=== PATIENT | female | born 1995 | race Caucasian/White ===

== ENCOUNTER → 2018-12-23 | Outpatient (CLI) | payer OTHER ==
[2018-12-23 17:20] LABS: BASO % 0.4 % (0.0-1.0); EOS % 0.4 % (0.0-3.0); HEMATOCRIT 38.1 % (36.0-47.0); HEMOGLOBIN 12.8 g/dl (12.0-15.5); LYMPH # 2.1 10^3/uL (1.5-5.0); LYMPH % 24.4 % (24.0-44.0); MEAN CORPUSCULAR HEMOGLOBIN 32.2 pg (27.0-33.0); MEAN CORPUSCULAR HGB CONC 33.6 g/dl (32.0-36.5); MEAN CORPUSCULAR VOLUME 95.7 fl (80.0-96.0); MONO # 0.7 10^3/uL (0.0-0.8); NEUTROPHILS # 5.6 10^3/uL (1.5-8.5); NEUTROPHILS % 66.6 % (36.0-66.0); PLATELET COUNT, AUTOMATED 213 10^3/uL (150-450); RED BLOOD COUNT 3.98 10^6/uL (4.00-5.40); WHITE BLOOD COUNT 8.4 10^3/uL (4.0-10.0)
[2018-12-23 18:32] LABS: CHLAMYDIA DNA AMPLIFICATION NEGATIVE (NEGATIVE); GC DNA AMPLIFICATION NEGATIVE (NEGATIVE)
[2018-12-26 13:24] LABS: HIV 1&2 SCREEN CENTAUR NEGATIVE (NEGATIVE); RUBELLA IgG QUALITATIVE IMMUNE (IMMUNE)
== END ==
LOC: M SMT 15:00
PROVIDERS: ATTEND Advanced Practice Midwife
DX: Z34.81 Encounter for supervision of other normal pregnancy, first trimester (principal); Z3A.00 Weeks of gestation of pregnancy not specified

== ENCOUNTER → 2019-02-01 | Outpatient (CLI) | payer BC, OTHER ==
--- NOTE | 2019-02-01 19:17 | REP ---
OB ULTRASOUND: Real-time sonographic evaluation of the gravid uterus performed. There is a single living intrauterine gestation, estimated gestational age 18 weeks 4 days, EDC 07/01/2019. Today's measurements indicate appropriate growth. BPD 45 mm = 19 weeks 4 days, 77th percentile HC 158 mm = 18 weeks 5 days, 52nd percentile AC 130 mm = 18 weeks 4 days, 49th percentile FL 27 mm = 18 weeks 1 day, 39th percentile HC/AC ratio 1.21 within normal range. Estimated weight 240 grams, 41st percentile. Cervix is closed and measures 4.3 cm in length. heart rate 139 beats per minute. SEEN/GROSSLY UNREMARKABLE Lateral ventricles yes Posterior fossa yes Upper lip yes Four-chamber heart yes LVOT yes RVOT no Stomach yes Cord insertion yes Three vessel cord yes Kidneys yes Bladder yes Spine yes position: Vertex. Placenta: Posterior and grade 1 with no previa or abruption. Amniotic fluid: Within normal limits. Electronically Signed by Derek Pate MD 02/06/2019 10:10 A
== END ==
LOC: M RAD 16:59
PROVIDERS: ATTEND Advanced Practice Midwife
DX: Z34.92 Encounter for supervision of normal pregnancy, unspecified, second trimester (principal); Z3A.18 18 weeks gestation of pregnancy

== ENCOUNTER → 2019-02-24 | Outpatient (REF) | payer OTHER | LOC: M PLALAB 11:47 | PROVIDERS: ATTEND Advanced Practice Midwife | DX: Z34.02 Encounter for supervision of normal first pregnancy, second trimester (principal) ==

== ENCOUNTER → 2019-02-28 | Outpatient (CLI) | payer OTHER ==
--- NOTE | 2019-02-28 19:09 | REP ---
Clinical: Anatomical evaluation. Comparison: 02/01/2019. Findings: Examination demonstrates a single live intrauterine in transverse presentation. motion is identified by technologist. Placenta is noted posterior and grade 0 without evidence for placenta previa or abruption. Amniotic fluid volume is normal. Cervix measures 6.5 cm in length and appears closed. No evidence for nuchal cord. Gestational age by LMP 22 weeks 3 days with MELISSA 07/01/2019 . Gestational age by current measurements 23 weeks 1 day with MELISSA 06/26/2019. FHR equals 141 beats per minute. Estimated weight 521 grams ( 53rd percentile). Anatomical assessment demonstrates normal facial features and right cardiac ventricular outflow tract. Impression: Single live intrauterine in transverse lie demonstrating appropriate interval growth. 2. In conjunction with prior examination anatomical assessment is complete and normal. Electronically Signed by Umair Burnett MD 02/28/2019 07:00 P
== END ==
LOC: M RAD 17:31
PROVIDERS: ATTEND Advanced Practice Midwife
DX: Z34.02 Encounter for supervision of normal first pregnancy, second trimester (principal); Z3A.22 22 weeks gestation of pregnancy

== ENCOUNTER → 2019-03-31 | Outpatient (CLI) | payer OTHER ==
[2019-03-31 17:27] LABS: HEMATOCRIT 36.2 % (36.0-47.0); HEMOGLOBIN 12.3 g/dl (12.0-15.5); MEAN CORPUSCULAR HEMOGLOBIN 33.5 pg (27.0-33.0); MEAN CORPUSCULAR VOLUME 98.6 fl (80.0-96.0); PLATELET COUNT, AUTOMATED 219 10^3/uL (150-450); RED BLOOD COUNT 3.67 10^6/uL (4.00-5.40)
== END ==
LOC: M PLALAB 12:58
PROVIDERS: ATTEND Advanced Practice Midwife
DX: Z34.02 Encounter for supervision of normal first pregnancy, second trimester (principal)

== ENCOUNTER → 2019-06-09 | Outpatient (REF) | payer OTHER | LOC: M PLALAB 09:36 | PROVIDERS: ATTEND Advanced Practice Midwife | DX: Z3A.36 36 weeks gestation of pregnancy (principal) ==

== ENCOUNTER 2019-06-23 10:40 | Outpatient (CLI) | payer OTHER ==
[~2019-06-23] VITALS: Ht 157.5 cm; Wt 81.3 kg
[2019-06-23 10:54] VITALS: BP 150/94
[2019-06-23 10:58] VITALS: BP 138/77
--- NOTE | 2019-06-23 11:13 | IPNPDOC ---
Text Note Date of Service The patient was seen on 06/23/19. NOTE Outpatient 23yo G1 MELISSA 07/01/2019. Presents @ 38w6d with reports of UC since 0300. Denies LOF, bleeding. Reports good activity. NAD, resting in bed VSS FH 150, + accels, occasional variable decels UC 2-4 minutes apart, mild SVE 2/80/-2, soft. Exam 2 days ago 50/-2 Will ambulate and reassess VS,Fishbone, I+O VS, Fishbone, I+O Vital Signs Date Time Temp Pulse Resp B/P (MAP) Pulse Ox O2 Delivery O2 Flow Rate FiO2 06/23/19 10:53 98.8 18 Room Air Zhanna Moe CNM June 23, 2019 11:13
[2019-06-23 12:13] VITALS: BP 128/76
[2019-06-23 13:38] VITALS: BP 125/80
--- NOTE | 2019-06-23 13:50 | IPNPDOC ---
Text Note Date of Service The patient was seen on 06/23/19. NOTE Outpatient Has ambulated for 2 hours. Cat I tracing, with mild irregular UC No cervical changed Discharged home. Rec rest, hydrate, tylenol Pt instructed to call with increased UC, LOF, bleeding Keep appt next week if no labor VS,Fishbone, I+O VS, Fishbone, I+O Vital Signs Date Time Temp Pulse Resp B/P (MAP) Pulse Ox O2 Delivery O2 Flow Rate FiO2 06/23/19 13:38 102 18 125/80 (95) Room Air 06/23/19 13:38 98.5 Zhanna Moe CNM June 23, 2019 13:50
== END 2019-06-23 13:41 | disposition home or self-care (01) ==
LOC: M LDO 10:40
PROVIDERS: ATTEND Advanced Practice Midwife
DX: O26.893 Other specified pregnancy related conditions, third trimester (principal); O47.1 False labor at or after 37 completed weeks of gestation; Z3A.38 38 weeks gestation of pregnancy
CPT/HCPCS: 59025; G0378; G0463

== ENCOUNTER 2019-07-07 15:29 | Inpatient (IN) | payer OTHER ==
[2019-07-07] VITALS (20 sets, daily range): BP systolic 112–156; BP diastolic 52–90
[~2019-07-07] VITALS: Ht 157.5 cm; Wt 83.4 kg
[2019-07-07] MEDS ORDERED: MAPA500T2 PO (15:45)
[2019-07-07] MEDS ORDERED: LEXA1TAB PO (15:45)
[2019-07-07] MEDS ORDERED: PRENTAB9 PO (15:45)
[2019-07-07] MEDS ORDERED: LACTATED RINGER'S 1000 ML IV STA (16:00)
--- NOTE | 2019-07-07 16:28 | HPEPDOC ---
Obstetrical History & Physical General Date of Admission July 07, 2019 at 15:29 History of Present Illness Chief Complaint: Contractions, term Information Provided By: Patient Age: 23 : 1 Term: 0 Pre-term: 0 Abortions: 0 Livin Care Care: Good Care Dating Final EDC by: LMP EGA at Admission: 40 (+6) Antepartum Course Height (inches): 63 Pre- weight (lbs.): 144 Admission Weight (lbs.): 183.6 Past Medical History Past Obstetrical History : Past Obstetrical History: [employer] History: No pertinent history Past Medical History Surgical History: Tonsilectomy Family History Significant Family History: Cancer (mother stage 2 breast CA), Diabetes, Heart disease, Hypertension Social History Marital Status: Single Family situation: Spouse/partner home Psychosocial History: Depression (stopped then restarted lexapro with ) * Smoker: non-smoker Alcohol: Denies Drugs: denies Abuse Violence Screening Have you been hit/kicked/slapp: No Have you been sexually assault: No Imunizations Tdap status: current Influenza Status: current Allergies Coded Allergies: cefaclor (Verified Allergy, Unknown, 07/07/19) Medications Scheduled Escitalopram Oxalate (Lexapro) 10 Mg Tablet, 10 MG PO DAILY No.137/Iron/Folic Acd ( Vitamin Tablet) 1 Each Tablet, 1 TAB PO DAILY Scheduled PRN Acetaminophen (Mapap) 500 Mg Tablet, 500 MG PO Q6HP PRN for PAIN Physical Examination Physical Examination GENERAL: Alert and oriented times three. BREAST: . ABDOMEN: Gravid and non-tender to touch. FETUS: Is vertex (VTX) by sterile vaginal examination (SVE), fetus is vertex (VTX) by Harry. HEART RATE: Regular rate and rhythm. LUNGS: Clear to auscultation (CTA). EXTREMITIES: No edema. No clonus. Deep tendon reflexes (DTRs) + 2. Vital Signs/I&O Vital Signs Date Time Temp Pulse Resp B/P (MAP) Pulse Ox O2 Delivery O2 Flow Rate FiO2 07/07/19 15:47 98.3 98 18 124/81 (95) Laboratory Data 24H [facility] Laboratory Tests 2 07/07/19 15:39: Serology Scanned Report Hepatitis B Testing Urine Culture: No Growth Pertinent Laboratoy Data Blood Type: O+ RBC Antibody Screen: Negative HIV: Negative Hepatitis B: Negative Hepatitis C: Negative Rapid Plasma Reagin: Nonreactive Rubella: Immune Chlamydia/Gonorrhea: Negative Group B Streptococcus: Negative Quad Screen Test: Declined Glucose Tolerance Test: 110 Anatomy Ultrasound Placenta Location: Posterior Normal Anatomy: Yes Placenta Previa: No Estimated Weight (grams): 240 (41%) Other Ultrasounds 12/01/2018 dating 9w2d F/u anatomy WNL EFW 521g, 53% Steroid Therapy Steroid Therapy: No Vaginal Examination Dilation: 3 cm Effacement: 90% Station: -2 Cervical Consistency: Medium Cervical Position: Middle Presentation: Cephalic presentation Assessment Heart Rate (FHR): 135 Variability: Moderate Accelerations: Positive Decelerations: None Tocometer Contractions: Yes Frequency: regular, every 3-7 min. Duration: greater than 60 seconds Strength: palpated as moderate Assessment/Plan Assessment Anusha is a 23-year-old (G)1 para (P)0-0-0-0 at 40+6 weeks by 9-week ultrasound. Presents to Labor and Delivery (L&D) with reports of contractions and bloody show since 0600. Stronger since noon. NST in office showed Cat I tracing, UC 4-5 minutes x 90-120 seconds, moderate. SVE in office /-, change from exam earlier this week. Plan Admit and orient. 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 Diet: regular. Group B Streptococcus (GBS) negative. Labs and intravenous (IV) per unit protocol. Counseled on Pitocin and induction of labor (IOL). Lactated Ringers (LR): Bolus 500 mL, then saline lock. Plans to labor ad petra. Is considering IV pain management vs epidural Anticipate normal spontaneous delivery (). C-S as appropriate. Zhanna Moe CNM July 07, 2019 16:14
[2019-07-07 16:43] LABS: HEMOGLOBIN 12.8 g/dl (12.0-15.5); MEAN CORPUSCULAR HEMOGLOBIN 32.1 pg (27.0-33.0); MEAN CORPUSCULAR HGB CONC 34.6 g/dl (32.0-36.5); MEAN CORPUSCULAR VOLUME 92.7 fl (80.0-96.0); PLATELET COUNT, AUTOMATED 204 10^3/uL (150-450); RED BLOOD COUNT 3.99 10^6/uL (4.00-5.40); WHITE BLOOD COUNT 13.9 10^3/uL (4.0-10.0)
[2019-07-07] MEDS ORDERED: PROMETHAZINE INJ 25 MG/ML VIAL (J2550) IV ONE (17:45)
[2019-07-07] MEDS ORDERED: BUTORPHANOL 2 MG/ML INJ (J0595) IV ONE (17:45)
--- NOTE | 2019-07-07 19:11 | IPNPDOC ---
Text Note Date of Service The patient was seen on 07/07/19. NOTE Progress Has received stadol and phenergan. UC have subsequently spaced out approximately 6 minutes apart FH 135, minimal variabiltiy due to stadol, previously Cat I SVE /-2, light show Will start pitocin augmentation. Pt is considering epidural VS,Fishbone, I+O VS, Fishbone, I+O Laboratory Tests 07/07/19 16:25 Vital Signs Date Time Temp Pulse Resp B/P (MAP) Pulse Ox O2 Delivery O2 Flow Rate FiO2 07/07/19 18:15 97.6 07/07/19 18:08 18 07/07/19 18:03 93 123/70 (87) Zhanna Moe CNM July 07, 2019 19:11
[2019-07-07] MEDS ORDERED: OXYTOCIN DRIP 30 UNITS in IV 1 EA IV SCH (19:15)
[2019-07-07] MEDS ORDERED: FENTANYL 2MCG/ML ROPIVACAINE 0.2% IN 0.9% NACL 100ML IVBAG As Ordered ONE (21:30)
[2019-07-07] MEDS ORDERED: LACTATED RINGER'S 1000 ML IV PRN (22:13)
[2019-07-07] MEDS ORDERED: NALOXONE INJ 0.4MG/1ML VIAL (J2310 PER 1MG) IV PRN (22:13)
[2019-07-07] MEDS ORDERED: ePHEDrine SULFATE 25 MG/5 ML(5MG/ML) SYRINGE IV PRN (22:13)
[2019-07-07] MEDS ORDERED: diphenhydrAMINE 50MG/ML VIAL (J1200) IV PRN (22:13)
[2019-07-07] MEDS ORDERED: REFRIGERATOR IV KEYS XX PRN (22:13)
[2019-07-07] MEDS ORDERED: EPIDURAL/PCA KEYS XX PRN (22:13)
[2019-07-07] MEDS ORDERED: ONDANSETRON 4MG/2ML VIAL IV PRN (22:13)
[2019-07-07] MEDS ORDERED: EPIDURAL COMMENT XX SCH (22:13)
[2019-07-07] MEDS: FENTANYL/ROPIVACAINE/NACL BAG 100 ML EPIDURAL SCH (22:13)
--- NOTE | 2019-07-07 22:54 | IPNPDOC ---
Text Note Date of Service The patient was seen on 07/07/19. NOTE Progress Comfortable with epidural Pitocin @ 2mu UC 2-3 minutes apart x 60 seconds FH 135, Cat I SVE /-1, anterior Enc rest. Anticipate NSVB VS,Fishbone, I+O VS, Fishbone, I+O Laboratory Tests 07/07/19 16:25 Vital Signs Date Time Temp Pulse Resp B/P (MAP) Pulse Ox O2 Delivery O2 Flow Rate FiO2 07/07/19 19:37 98.4 91 18 129/78 (95) Zhanna Moe CNM July 07, 2019 22:54
[2019-07-07] MEDS: LR 1,000 ML IV SCH (23:40)
[2019-07-08] VITALS (31 sets, daily range): BP systolic 118–158; BP diastolic 67–101
[2019-07-08] MEDS: FENTANYL/ROPIVACAINE/NACL BAG 100 ML EPIDURAL SCH (05:15)
--- NOTE | 2019-07-08 05:22 | IPNPDOC ---
Text Note Date of Service The patient was seen on 07/08/19. NOTE Feeling pressure/pain rectally SROM scant clear fluid 0249 Pitocin remains @ 2 mu UC Q 2-3 minutes x 60 seconds FH 145, Cat I SVE 8-9/100/-1-0. Forebag palpable. Offered AROM, pt declines at this time. VS,Fishbone, I+O VS, Fishbone, I+O Laboratory Tests 07/07/19 16:25 Vital Signs Date Time Temp Pulse Resp B/P (MAP) Pulse Ox O2 Delivery O2 Flow Rate FiO2 07/08/19 00:57 94 132/75 (94) 07/07/19 23:59 99.1 16 I&O- Last 24 Hours up to 6 AM 07/08/19 06:00 Intake Total 500 ml Output Total 350 ml Balance 150 ml Zhanna Moe CNM July 08, 2019 05:22
--- NOTE | 2019-07-08 07:08 | IPNPDOC ---
Text Note Date of Service The patient was seen on 07/08/19. NOTE Pt requesting AROM of forebag. 9cm, mostly on left side, 0 station AROM, scant clear fluid Cat I tracing. VS,Fishbone, I+O VS, Fishbone, I+O Laboratory Tests 07/07/19 16:25 Vital Signs Date Time Temp Pulse Resp B/P (MAP) Pulse Ox O2 Delivery O2 Flow Rate FiO2 07/08/19 06:58 121 128/88 (101) 07/08/19 03:39 99.8 16 I&O- Last 24 Hours up to 6 AM 07/08/19 06:00 Intake Total 500 ml Output Total 350 ml Balance 150 ml Zhanna Moe CNM July 08, 2019 07:08
[2019-07-08] MEDS: LR 1,000 ML IV SCH (07:13)
[2019-07-08] MEDS ORDERED: DIBUCAINE 1% OINTMENT 30GM TOP PRN (10:30)
[2019-07-08] MEDS ORDERED: RHOGAM 300 MCG (1500 IU) INJ (J2790) IM SCH (10:30)
[2019-07-08] MEDS ORDERED: LIDOCAINE 1% MDV 20ML VIAL INFIL ONE (10:30)
[2019-07-08] MEDS ORDERED: METHYLERGONOVINE MALEATE 0.2 MG TAB PO PRN (10:30)
[2019-07-08] MEDS ORDERED: DOCUSATE SODIUM 100 MG CAP PO PRN (10:30)
[2019-07-08] MEDS ORDERED: MEASLES,MUMPS,RUBELLA VACCINE INJ (MMR-II) (90707) SC SCH (10:30)
[2019-07-08] MEDS ORDERED: miSOPROStol 100 MCG TAB (S0191) PR ONE (10:30)
[2019-07-08] MEDS ORDERED: IBUPROFEN 600 MG TAB PO PRN (10:30)
[2019-07-08] MEDS ORDERED: PROMETHAZINE 25 MG TAB PO PRN (10:30)
[2019-07-08] MEDS ORDERED: OXYTOCIN 30 UNITS IN 0.9% NaCl 500ML IV BAG (J2590) As Ordered ONE (10:31)
[2019-07-08] MEDS ORDERED: OXYTOCIN DRIP 30 UNITS in IV 1 EA IV SCH ×2 (11:00→11:30)
[2019-07-08] MEDS ORDERED: LR 1,000 ML IV SCH (11:00)
[2019-07-08] MEDS ORDERED: miSOPROStol 200 MCG TAB (S0191) As Ordered ONE (11:15)
[2019-07-08] MEDS: IBUPROFEN 800 MG TAB PO PRN ×2 (11:16→20:25)
[2019-07-08] MEDS: ACETAMINOPHEN 500 MG TAB PO PRN ×3 (11:42→23:44)
[2019-07-08] MEDS ORDERED: miSOPROStol 200 MCG TAB (S0191) PR ONE (12:00)
[2019-07-09] MEDS: IBUPROFEN 800 MG TAB PO PRN ×3 (04:37→19:20)
[2019-07-09 06:00] VITALS: BP 122/76
[2019-07-09 07:08] LABS: HEMATOCRIT 28.9 % (36.0-47.0); MEAN CORPUSCULAR HEMOGLOBIN 33.1 pg (27.0-33.0); MEAN CORPUSCULAR HGB CONC 34.9 g/dl (32.0-36.5); MEAN CORPUSCULAR VOLUME 94.8 fl (80.0-96.0); PLATELET COUNT, AUTOMATED 155 10^3/uL (150-450); RED BLOOD COUNT 3.05 10^6/uL (4.00-5.40); WHITE BLOOD COUNT 18.5 10^3/uL (4.0-10.0)
[2019-07-09 07:11] LABS: HEMOGLOBIN 10.1 g/dl (12.0-15.5)
[2019-07-09] MEDS: ACETAMINOPHEN TAB 650MG DOSE (2X325MG) PO PRN ×2 (08:14→16:48)
[2019-07-09] MEDS: PRENATAL VITAMINS CHEWABLE TABLET PO SCH (08:15)
[2019-07-09 18:07] VITALS: BP 125/70
[2019-07-10] MEDS: ACETAMINOPHEN 500 MG TAB PO PRN ×2 (01:22→07:41)
[2019-07-10] MEDS: IBUPROFEN 800 MG TAB PO PRN (03:33)
[2019-07-10 06:20] VITALS: BP 122/78
[2019-07-10] MEDS: PRENATAL VITAMINS CHEWABLE TABLET PO SCH (07:40)
== END 2019-07-10 12:40 | disposition home or self-care (01) | DRG 807 ==
LOC: M LDI 15:29 → M OBS 07-08 13:23
PROVIDERS: ADMIT Advanced Practice Midwife; ATTEND Advanced Practice Midwife
PROC: 10E0XZZ Delivery of Products of Conception, External Approach (ICD-10-PCS; principal; 2019-07-08)
PROC: 0HQ9XZZ Repair Perineum Skin, External Approach (ICD-10-PCS; 2019-07-08)
DX: O48.0 Post-term pregnancy (principal); Z37.0 Single live birth; Z3A.40 40 weeks gestation of pregnancy

== ENCOUNTER → 2021-03-17 | Outpatient (REF) ==
[~2021-03-17] MED LIST: LEXA1TAB PO; MAPA500T2 PO; PRENTAB9 PO
== END ==
LOC: M LAB REF 14:24
PROVIDERS: ATTEND Obstetrics & Gynecology Obstetrics
DX: Z36.89 Encounter for other specified antenatal screening (principal)

== ENCOUNTER → 2021-03-31 | Outpatient (CLI) | payer OTHER | LOC: M LAB 00:18 | PROVIDERS: ATTEND Obstetrics & Gynecology | DX: Z36.89 Encounter for other specified antenatal screening (principal) ==

== ENCOUNTER → 2022-11-05 | Outpatient (CLI) | payer OTHER, SELFPAY | LOC: M RAD 16:09 | PROVIDERS: ATTEND Obstetrics & Gynecology Obstetrics | DX: Z34.82 Encounter for supervision of other normal pregnancy, second trimester (principal); Z3A.21 21 weeks gestation of pregnancy ==

== ENCOUNTER → 2023-09-27 | Outpatient (REF) | LOC: M EMP 12:23 | PROVIDERS: ATTEND Family Medicine | DX: Z11.52 Encounter for screening for COVID-19 (principal) ==

== ENCOUNTER → 2023-11-10 | Outpatient (REF) | payer OTHER ==
[2023-11-10 17:45] LABS: RSV AMPLIFICATION NEGATIVE (NEGATIVE)
== END ==
LOC: M LAB REF 16:09
PROVIDERS: ATTEND Physician Assistant
DX: J06.9 Acute upper respiratory infection, unspecified (principal)

== ENCOUNTER → 2024-10-31 | Outpatient (CLI) | payer OTHER ==
[2024-10-31 19:16] LABS: PLATELET COUNT, AUTOMATED 232 10^3/uL (150-450)
[2024-10-31 20:15] LABS: HIV 1&2 SCREEN NEGATIVE (NEGATIVE)
[2024-10-31 20:23] LABS: HEPATITIS C VIRUS ABY INDEX < 0.02 INDEX (<0.8)
[2024-10-31 20:35] LABS: Trichomonas vaginalis (AMP) NOT DETECTED (NEGATIVE)
[2024-10-31 20:59] LABS: GC DNA AMPLIFICATION NEGATIVE (NEGATIVE)
== END ==
LOC: M PLALAB 15:29
PROVIDERS: ATTEND Advanced Practice Midwife
DX: Z34.81 Encounter for supervision of other normal pregnancy, first trimester (principal)

== ENCOUNTER → 2024-11-08 | Outpatient (REF) | payer OTHER ==
[2024-11-08 17:59] LABS: AMORPHOUS SEDIMENT SMALL (NEGATIVE); APPEARANCE, URINE CLOUDY (CLEAR); BACTERIA, URINE AUTO 2+ (NEGATIVE); BILIRUBIN, URINE AUTO NEGATIVE (NEGATIVE); BLOOD, URINE BLOOD NEGATIVE (NEGATIVE); GLUCOSE, URINE (UA) AUTO NEGATIVE (NEGATIVE); KETONE, URINE AUTO NEGATIVE (NEGATIVE); LEUKOCYTE ESTERASE, URINE AUTO 3+ (NEGATIVE); MUCUS, URINE SMALL (NEGATIVE); NITRITE, URINE AUTO POSITIVE (NEGATIVE); PROTEIN, URINE AUTO NEGATIVE (NEGATIVE); RBC, URINE AUTO 0 /HPF (0-3); SPECIFIC GRAVITY URINE AUTO 1.024 (1.002-1.035); SQUAMOUS EPITHELIAL CELL UR AU 3 /HPF (0-6); UROBILINOGEN, URINE AUTO 0.2 mg/dL (0.0-2.0); WBC, URINE AUTO 3 /HPF (0-3)
== END ==
LOC: M PLALAB 14:16
PROVIDERS: ATTEND Advanced Practice Midwife
DX: R30.0 Dysuria (principal)

== ENCOUNTER → 2024-11-30 | Outpatient (REF) | payer OTHER | LOC: M SFHCWAGY 10:01 | PROVIDERS: ATTEND Advanced Practice Midwife | DX: Z34.80 Encounter for supervision of other normal pregnancy, unspecified trimester (principal) ==

== ENCOUNTER → 2024-12-29 | Outpatient (CLI) | payer OTHER | LOC: M WHC 07:39 | PROVIDERS: ATTEND Specialist | DX: N20.0 Calculus of kidney (principal) ==

== ENCOUNTER → 2024-12-29 | Outpatient (CLI) | payer OTHER | LOC: M WHC 07:40 | PROVIDERS: ATTEND Advanced Practice Midwife | DX: Z34.80 Encounter for supervision of other normal pregnancy, unspecified trimester (principal) ==

== ENCOUNTER → 2025-01-01 | Outpatient (REF) | payer OTHER | LOC: M SFHCWAGY 10:09 | PROVIDERS: ATTEND Nurse Practitioner Family | DX: R82.79 Other abnormal findings on microbiological examination of urine (principal) ==

== ENCOUNTER 2025-01-15 14:54 | Outpatient (CLI) | payer OTHER ==
[~2025-01-15] VITALS: Ht 160 cm; Wt 81.1 kg
[2025-01-15 15:19] VITALS: BP 109/72
[2025-01-15] MEDS ORDERED: ACET500P3 PO (15:23)
[2025-01-15 15:53] LABS: AMORPHOUS SEDIMENT SMALL (NEGATIVE); APPEARANCE, URINE CLEAR (CLEAR); BACTERIA, URINE AUTO NEGATIVE (NEGATIVE); BILIRUBIN, URINE AUTO NEGATIVE (NEGATIVE); BLOOD, URINE BLOOD NEGATIVE (NEGATIVE); GLUCOSE, URINE (UA) AUTO NEGATIVE (NEGATIVE); KETONE, URINE AUTO NEGATIVE (NEGATIVE); LEUKOCYTE ESTERASE, URINE AUTO 1+ (NEGATIVE); NITRITE, URINE AUTO NEGATIVE (NEGATIVE); PROTEIN, URINE AUTO NEGATIVE (NEGATIVE); RBC, URINE AUTO 0 /HPF (0-3); SPECIFIC GRAVITY URINE AUTO 1.006 (1.002-1.035); SQUAMOUS EPITHELIAL CELL UR AU 2 /HPF (0-6); UROBILINOGEN, URINE AUTO 0.2 mg/dL (0.0-2.0); WBC, URINE AUTO 1 /HPF (0-3)
[2025-01-15 16:05] LABS: BASO # 0.0 10^3/uL (0.0-0.2); BASO % 0.3 % (0.0-1.0); EOS # 0.1 10^3/uL (0.0-0.5); EOS % 0.9 % (0.0-3.0); LYMPH # 2.0 10^3/uL (1.5-5.0); LYMPH % 20.0 % (24.0-44.0); MONO # 0.6 10^3/uL (0.0-0.8); MONO % 6.2 % (2.0-8.0); NEUTROPHILS # 7.1 10^3/uL (1.5-8.5); NEUTROPHILS % 71.9 % (36.0-66.0); PLATELET COUNT, AUTOMATED 205 10^3/uL (150-450)
[2025-01-15 16:32] LABS: ALT/SGPT 10 U/L (7.0-40); AST/SGOT 13 U/L (<34); CALCIUM LEVEL 8.1 MG/DL (8.5-10.1); CARBON DIOXIDE LEVEL 20 MMOL/L (20-31); CHLORIDE LEVEL 108 MMOL/L (98-107); CREATININE FOR GFR 0.43 MG/DL (0.55-1.30); GLOMERULAR FILTRATION RATE > 90.0 (>60); POTASSIUM SERUM 3.8 MMOL/L (3.5-5.1); SODIUM LEVEL 140 MMOL/L (136-145)
[2025-01-15] MEDS: cefTRIAXone SOD 1 GM in DEXTROSE 5% (D5W) ADV/MINI-BAG 50 ML IV ONE (17:43)
== END 2025-01-15 18:30 | disposition home or self-care (01) ==
LOC: M LDO 14:54
PROVIDERS: ATTEND Advanced Practice Midwife
DX: O26.892 Other specified pregnancy related conditions, second trimester (principal); R30.0 Dysuria; R10.A1 Flank pain, right side; Z3A.21 21 weeks gestation of pregnancy
CPT/HCPCS: 36415; 59025; 80053; 81001; 83605; 85025; 86140; 87040; 87088; 87186; 96365; G0463; J0696

== ENCOUNTER → 2025-01-17 | Outpatient (CLI) | payer OTHER ==
[~2025-01-17] MED LIST changes: +ACET500P3 PO
== END ==
LOC: M WHC 13:43
PROVIDERS: ATTEND Nurse Practitioner Family
DX: Z34.82 Encounter for supervision of other normal pregnancy, second trimester (principal)

== ENCOUNTER → 2025-02-06 | Outpatient (CLI) | payer OTHER ==
[2025-02-06 19:13] LABS: PLATELET COUNT, AUTOMATED 208 10^3/uL (150-450)
[2025-02-06 20:48] LABS: HIV 1&2 SCREEN NEGATIVE (NEGATIVE)
[2025-02-06 20:56] LABS: HEPATITIS C VIRUS ABY INDEX 0.03 INDEX (<0.8)
== END ==
LOC: M PLALAB 16:14
PROVIDERS: ATTEND Obstetrics & Gynecology
DX: Z36.89 Encounter for other specified antenatal screening (principal); Z3A.24 24 weeks gestation of pregnancy

== ENCOUNTER → 2025-02-12 | Outpatient (CLI) | payer OTHER ==
[2025-02-12 14:14] LABS: APPEARANCE, URINE HAZY (CLEAR); BACTERIA, URINE AUTO NEGATIVE (NEGATIVE); BILIRUBIN, URINE AUTO NEGATIVE (NEGATIVE); BLOOD, URINE BLOOD NEGATIVE (NEGATIVE); GLUCOSE, URINE (UA) AUTO NEGATIVE (NEGATIVE); KETONE, URINE AUTO NEGATIVE (NEGATIVE); LEUKOCYTE ESTERASE, URINE AUTO NEGATIVE (NEGATIVE); MUCUS, URINE SMALL (NEGATIVE); NITRITE, URINE AUTO NEGATIVE (NEGATIVE); PROTEIN, URINE AUTO NEGATIVE (NEGATIVE); RBC, URINE AUTO 1 /HPF (0-3); SPECIFIC GRAVITY URINE AUTO 1.018 (1.002-1.035); SQUAMOUS EPITHELIAL CELL UR AU 4 /HPF (0-6); UROBILINOGEN, URINE AUTO 0.2 mg/dL (0.0-2.0); WBC, URINE AUTO 3 /HPF (0-3)
== END ==
LOC: M RAD 08:47
PROVIDERS: ATTEND Obstetrics & Gynecology
DX: O26.892 Other specified pregnancy related conditions, second trimester (principal); R30.0 Dysuria; Z3A.24 24 weeks gestation of pregnancy

== ENCOUNTER → 2025-02-19 | Outpatient (CLI) | payer OTHER ==
[2025-02-19 14:14] LABS: Trichomonas vaginalis (AMP) NOT DETECTED (NEGATIVE)
[2025-02-19 14:38] LABS: GC DNA AMPLIFICATION NEGATIVE (NEGATIVE)
== END ==
LOC: M PLALAB 09:21
PROVIDERS: ATTEND Obstetrics & Gynecology
DX: Z36.89 Encounter for other specified antenatal screening (principal); Z3A.24 24 weeks gestation of pregnancy